=== PATIENT | female | born 1965 | race Caucasian/White ===

== ENCOUNTER 2017-05-04 09:37 | Emergency (ER) | payer OTHER ==
[~2017-05-04] VITALS: Ht 175.3 cm; Wt 85.7 kg
[2017-05-04 10:26] LABS: HEMATOCRIT 50.3 % (36.0-46.0); MCH 34.4 PG (29.0-34.0); MCHC 35.2 G/DL (30.0-36.0); MCV 97.7 FL (83-99); MEAN PLAT.VOLUME 10.3 uM^3 (9.5-12.4); PLATELET COUNT 145 K/uL (156-360); RBC DIS.WIDTH-CV 12.4 % (11.8-14.6); RED BLOOD COUNT 5.15 M/uL (3.80-5.20); WHITE BLOOD COUNT 7.7 K/uL (4.1-10.2)
[2017-05-04 10:37] LABS: CHLORIDE 102 mEq/L (99-109); SODIUM 141 mEq/L (136-147)
[2017-05-04 10:39] LABS: GLUCOSE 125 mg/dL (70-99)
[2017-05-04 10:41] LABS: ANION GAP 13 MEQ/L (2-14)
[2017-05-04 10:43] LABS: GFR ESTIMATE (CALCULATED) > 59 mL/min/
[2017-05-04 10:44] LABS: UREA NITROGEN (BUN) 10 mg/dL (9-23)
[2017-05-04 11:32] LABS: PROTHROMBIN TIME 10.9 SEC (10.2-12.9)
[2017-05-04 11:34] LABS: PTT 34.6 SEC (25-37)
[2017-05-04 11:36] LABS: TOTAL BILIRUBIN 1.7 mg/dL (0.0-1.0)
[2017-05-04 11:37] LABS: ALKALINE PHOSPHATASE 118 IU/L (3-129)
[2017-05-04 11:39] LABS: DIRECT BILIRUBIN 0.6 mg/dL (0.0-0.3)
[2017-05-04 12:25] VITALS: BP 136/97
== END 2017-05-04 12:27 | disposition home or self-care (01) ==
LOC: EME 09:37
PROVIDERS: Emergency Medicine
DX: K92.1 Melena (principal); Z87.891 Personal history of nicotine dependence
CPT/HCPCS: 80048; 80076; 85027; 85610; 85730; 86850; 86900; 86901; 99281; 99283